=== PATIENT | female | born 1945 | race Caucasian/White ===

== ENCOUNTER → 2016-12-30 | Outpatient (CLI) | payer OTHER | LOC: BMCIMAGING 15:25 | PROVIDERS: ATTEND Internal Medicine | DX: R05 Cough (principal); D86.0 Sarcoidosis of lung ==

== ENCOUNTER 2017-02-20 14:56 | Observation (INO) | payer OTHER ==
--- NOTE | 2017-02-20 15:10 | EDPHY ---
H & P Stated Complaint: heart palp Time Seen by Provider: 02/20/17 15:09 - Personal History Current Tetanus/Diphtheria Vaccine: Unsure Current Tetanus Diphtheria and Acellular Pertussis (TDAP): Unsure - Medical/Surgical History Hx Asthma: No Hx Chronic Respiratory Disease: No Hx Diabetes: No Hx Cardiac Disease: No Hx Renal Disease: No Hx Cirrhosis: No Hx Alcoholism: No Hx HIV/AIDS: No Hx Splenectomy or Spleen Trauma: No Other PMH: HYPOTHYROID,SJOGRENS SYNDROM, SCARCOIDOISIS,KNEE REPAIR, PELVIC FLOOR REPAIR,TONSILECTOMY - Social History Smoking Status: Never smoked Constitutional: Initial Vital Signs Temperature (C) 36.6 C 02/20/17 14:58 Heart Rate 120 H 02/20/17 14:58 Respiratory Rate 16 02/20/17 14:58 Blood Pressure 134/99 H 02/20/17 14:58 O2 Sat (%) 96 02/20/17 14:58 O2 Delivery Mode Room Air Allergies/Adverse Reactions: quinine [Quinine] Allergy (Intermediate, Verified 05/28/16 15:20) LIVER PROBLEMS celecoxib [From Celebrex] Allergy (Mild, Verified 05/28/16 15:20) Hives NSAIDS (Non-Steroidal Anti-Inflamma Allergy (Verified 05/28/16 15:20) Home Medications: Medication Instructions Recorded NAPROXEN 10/16/10 Cytomel 05/28/16 Metformin HCl 05/28/16 Prednisone 05/28/16 Synthroid 05/28/16 Medical Decision Making - Diagnostics Imaging Results: Imaging Impressions Chest X-Ray 02/20/17 15:18 Impression: Possible new interstitial lung disease, potentially related to the patient's sarcoid/Sjogren's disease. Imaging: I viewed and interpreted images myself ED Course/Re-evaluation: CHIEF COMPLAINT: Heart palpitations HISTORY OF PRESENT ILLNESS: The patient is a 71 y/o female arriving with her complaining of rapid heart rate and palpitations onset this morning. She has a history of Sarcoidosis and Sjogren's syndrome for which she has been on chronic low-dose prednisone. She recently decreased her prednisone dosing from 5mg every 3 days to nothing in preparation for a cortisol stimulation test. She thinks this change triggered her palpitations. She has one prior episode of similar symptoms in 2002 they believed was related to hyperthyroidism related to taking too much medication. Since that episode she occasionally notices some skipped beats, but states all subsequent EKGs have been normal. This morning she felt more fatigued than normal with some shortness of breath and her heart rate felt "bumpy." A home BP device showed her HR at 126, so she called her doctor and was advised to come into the ED. She denies associated chest pain, fever, vomiting, or other complaints. Last PO intake was lunch at noon. REVIEW OF SYSTEMS: A 10 point review of systems was performed and is negative with the exception of the elements mentioned in the history of present illness. PHYSICAL EXAM: HR 130, BP, O2 Sat, RR. Temp noted General Appearance: Alert, well hydrated, appropriate, and non-toxic appearing. Head: Atraumatic without scalp tenderness or obvious injury Eyes: Pupils equal, round, reactive to light and accommodation, EOMI, no trauma , no injection. Nose: Atraumatic, no rhinorrhea, clear. Throat: Mucus membranes moist. Neck: Supple, nontender, no lymphadenopathy. Respiratory: No retractions, no distress, no wheezes, and no accessory muscle use. Lungs are clear to auscultation bilaterally. Cardiovascular: Tachycardic, irregularly irregular, no murmurs, rubs, or gallops. Good capillary refill all extremities. Gastrointestinal: Abdomen is soft, nontender, non-distended, no masses, no rebound, no guarding, no peritoneal signs. Musculoskeletal: Normal active ROM of all extremities, atraumatic. Neurological: Alert, appropriate, and interactive. Nonfocal neuro exam. Skin: No rashes, good turgor, no nodules on palpation. Past medical history: one episode atrial fibrillation 2002, sarcoidosis, Sjogren 's syndrome, hypothyroidism. Past surgical history: knee surgery Family history: noncontributory Social history: at bedside. Bacteriologist Food: Dr. Tavarez. PCP: Dr. Bermudez. Prior medical records reviewed including ED visit 06/13/16 for right knee swelling. DIAGNOSTICS/PROCEDURES/CRITICAL CARE TIME: The 12 lead EKG was interpreted by myself. Rapid atrial fibrillation with ventricular rate around 130. See hard copy and/or "tracemaster" electronic copy for interpretation. DIFFERENTIAL DIAGNOSIS: The differential diagnosis for the patient's narrow complex tachycardia included but was not limited to various causes of sinus tachycardia such as dehydration and medicines, SVT, atrial flutter, atrial fibrillation, pulmonary causes. MEDICAL DECISION MAKING: This is a 71 y/o female with a history of Sjogren's and sarcoidosis presenting with a few-hour history of rapid atrial fibrillation. She is on day 4 of a low prednisone taper and this morning noticed palpitations, fatigue, and dyspnea. On exam, she has a rapid irregularly irregular heart rate. Her EKG shows rapid atrial fibrillation. Her exam is otherwise unremarkable. Plan for IV, labs including TSH, chest x-ray, IV fluids, and 10mg IV Diltazem to be followed by Diltazem drip. TSH, troponin, and other lab work unremarkable. Paged Dr. Cramer to determine if he agrees with cardioversion here. She is within the window of onset to minimize risk of blood clot with this procedure. 1651: Consulted with Dr. Cramer, line servicer. He agrees with my plan, but also recommends starting patient on anticoagulants for at least 1 month course. Reassessed patient and discussed work up and recommendation for cardioversion. We discussed risks and benefits. Her HR is currently around 115. She has requested to wait and see if she converts without electrical cardioversion. Plan for admission. 15mg PO Xarelto administered. 1722: Spoke with hospitalist service. Dr. Atkinson accepts admission. 1742: Updated Dr. Cramer. He will follow patient during admission. - Data Points Laboratory Results: Laboratory Results 02/20/17 15:10 02/20/17 15:10 02/20/17 02/20/17 15:10 15:10 WBC 6.85 10^3/uL 10^3/uL (3.80-9.50) RBC 5.39 10^6/uL H 10^6/uL (4.18-5.33) Hgb 16.2 g/dL g/dL (12.6-16.3) Hct 48.0 % H % (38.0-47.0) MCV 89.1 fL fL (81.5-99.8) MCH 30.1 pg pg (27.9-34.1) MCHC 33.8 g/dL g/dL (32.4-36.7) RDW 14.1 % % (11.5-15.2) Plt Count 263 10^3/uL 10^3/uL (150-400) MPV 10.2 fL fL (8.7-11.7) Neut % (Auto) 57.7 % % (39.3-74.2) Lymph % (Auto) 28.9 % % (15.0-45.0) [place] % (Auto) 8.8 % % (4.5-13.0) Eos % (Auto) 3.6 % % (0.6-7.6) Baso % (Auto) 0.7 % % (0.3-1.7) Nucleat RBC Rel Count 0.0 % % (0.0-0.2) Absolute Neuts (auto) 3.95 10^3/uL 10^3/uL (1.70-6.50) Absolute Lymphs (auto) 1.98 10^3/uL 10^3/uL (1.00-3.00) Absolute Monos (auto) 0.60 10^3/uL 10^3/uL (0.30-0.80) Absolute Eos (auto) 0.25 10^3/uL 10^3/uL (0.03-0.40) Absolute Basos (auto) 0.05 10^3/uL 10^3/uL (0.02-0.10) Absolute Nucleated RBC 0.00 10^3/uL 10^3/uL (0-0.01) Immature Gran % 0.3 % % (0.0-1.1) Immature Gran # 0.02 10^3/uL 10^3/uL (0.00-0.10) Sodium 138 mEq/L mEq/L (134-144) Potassium 3.9 mEq/L mEq/L (3.5-5.2) Chloride 105 mEq/L mEq/L (97-110) Carbon Dioxide 25 mEq/l mEq/l (22-31) Anion Gap 8 mEq/L mEq/L (8-16) BUN 18 mg/dL mg/dL (7-23) Creatinine 0.7 mg/dL mg/dL (0.6-1.0) Estimated GFR > 60 Glucose 108 mg/dL H mg/dL (70-100) Calcium 10.2 mg/dL mg/dL (8.5-10.4) Magnesium 1.8 mg/dL mg/dL (1.6-2.3) Troponin I < 0.012 ng/mL ng/mL (0-0.034) NT-Pro-B Natriuret Pep 75 pg/mL pg/mL (0-125) TSH 0.805 uIU/mL uIU/mL (0.465-4.680) Medications Given: Discontinued Medications Diltiazem HCl (Cardizem 25 Mg/5 Ml Vial) 10 mg IVP EDNOW ONE Stop: 02/20/17 15:35 Last Admin: 02/20/17 15:49 Dose: 10 mg Sodium Chloride (Ns) 1,000 mls @ 0 mls/hr IV ONCE ONE PRN Reason: Wide Open Stop: 02/20/17 15:16 Last Admin: 02/20/17 15:15 Dose: 1,000 mls Diltiazem HCl 125 mg/ Dextrose 150 mls @ 0 mls/hr IV EDNOW ONE; Titrate PRN Reason: Protocol Stop: 02/20/17 15:36 Last Admin: 02/20/17 16:04 Dose: 150 mls Departure - Departure Disposition: [facility] Inpatient Acute Clinical Impression: Atrial fibrillation Qualifiers: Atrial fibrillation type: paroxysmal Qualified Code(s): I48.0 - Paroxysmal atrial fibrillation Condition: Fair Report Scribed for: Hoemro Nunez Report Scribed by: Laya Mendoza Date of Report: 02/20/17 Time of Report: 15:33
[2017-02-20] MEDS ORDERED: NS 1,000 ML IV ONE (15:15)
--- NOTE | 2017-02-20 15:16 | CPEKG ---
Heart Rate: 131 RR Interval: 458 QRSD Interval: 88 QT Interval: 312 QTC Interval: 461 QRS [place]: -2 T Wave [place]: 44 EKG Severity - ABNORMAL ECG - EKG Impression: ATRIAL FIBRILLATION EKG Impression: BORDERLINE ST DEPRESSION, LATERAL LEADS Electronically Signed By: Homero Nunez 20-Feb-2017 18:46:49
[2017-02-20 15:25] LABS: % IMMATURE GRANULYOCYTES 0.3 % (0.0-1.1); ABSOLUTE IMMATURE GRANULOCYTES 0.02 10^3/uL (0.00-0.10); ADD DIFF? NO; ADD MORPH? NO; ADD SCAN? NO; ATYPICAL LYMPHOCYTE FLAG 0 (0-99); FRAGMENT RBC FLAG 0 (0-99); HEMOGLOBIN 16.2 g/dL (12.6-16.3); LEFT SHIFT FLG 0 (0-99); LIPEMIA HEMOLYSIS FLAG 90 (0-99); MEAN CELL HEMOGLOBIN 30.1 pg (27.9-34.1); MEAN CELL HEMOGLOBIN CONCENTR. 33.8 g/dL (32.4-36.7); MEAN CELL VOLUME 89.1 fL (81.5-99.8); MEAN PLATELET VOLUME 10.2 fL (8.7-11.7); PLATELET CLUMPS FLAG 10 (0-99); PLATELET COUNT 263 10^3/uL (150-400); RED BLOOD CELL COUNT 5.39 10^6/uL (4.18-5.33); RED CELL DISTRIBUTION WIDTH 14.1 % (11.5-15.2)
[2017-02-20] MEDS ORDERED: DILTIAZEM 25 MG/5 ML VIAL IVP ONE (15:34)
[2017-02-20] MEDS ORDERED: DILTIAZEM 125 MG in D5W 125 ML IV ONE (15:35)
[2017-02-20 15:41] LABS: ANION GAP 8 mEq/L (8-16); CALCIUM 10.2 mg/dL (8.5-10.4); CARBON DIOXIDE 25 mEq/l (22-31); CHLORIDE 105 mEq/L (97-110); CREATININE 0.7 mg/dL (0.6-1.0); GLOMERULAR FILTRATION RATE > 60; GLUCOSE 108 mg/dL (70-100); MAGNESIUM 1.8 mg/dL (1.6-2.3); POTASSIUM 3.9 mEq/L (3.5-5.2); SODIUM 138 mEq/L (134-144)
[2017-02-20 15:53] LABS: TROPONIN I < 0.012 ng/mL (0-0.034)
[2017-02-20] MEDS ORDERED: RIVAROXABAN 15 MG TAB PO ONE (17:27)
[2017-02-20] MEDS ORDERED: ACETAMINOPHEN 325 MG TAB PO PRN (18:52)
[2017-02-20] MEDS ORDERED: ONDANSETRON DISINTEGRATING 4 MG TAB PO PRN (18:52)
[2017-02-20] MEDS ORDERED: ONDANSETRON 4 MG/2 ML VIAL IVP PRN (18:52)
--- NOTE | 2017-02-20 18:59 | PDGENHP ---
History and Physical - Chief Complaint palpitations - History of Present Illness 71 yo female with distant h/o A fib thought related to hyperthyroidism presents to ED with heart palpitations. Onset was early this afternoon. She denies CP, but feels some SOB with activity. She has a h/o Sjogren's syndrome and was recently treated with a Prednisone taper. No headaches, vision changes or focal weakness. No abdominal pain, N/V/D or changes in her bowel or bladder habits. She drinks 1-2 glasses of wine occasionally. No significant caffeine intake. Her mom had a h/o A fib and of a stroke after heart valve surgery. She is found to be in rapid A fib in the ED, was started on a Diltiazem drip, and is admitted for further management. History Information - Allergies/Home Medication List Allergies/Adverse Reactions: quinine [Quinine] Allergy (Intermediate, Verified 05/28/16 15:20) LIVER PROBLEMS celecoxib [From Celebrex] Allergy (Mild, Verified 05/28/16 15:20) Hives Home Medications: Albuterol [Proventil Inhaler HFA (*)] 2 puffs IH Q4 PRN 02/20/17 [Last Taken Unknown] Ergocalciferol [Vitamin D2 (*)] 50,000 unit PO Q30D 02/20/17 [Last Taken ] Fluticasone Nasal [Flonase Nasal [place] (RX)] 1 sprays NASAL DAILY PRN 02/20/17 [ Last Taken Unknown] Levothyroxine [Synthroid 88 mcg (*)] 88 mcg PO DAILY 02/20/17 [Last Taken ] Liothyronine Sodium [Cytomel 5 mcg (*)] 2.5 mcg PO HS 02/20/17 [Last Taken 02/19] Liothyronine Sodium [Cytomel 5 mcg (*)] 5 mcg PO DAILY 02/20/17 [Last Taken 12/03] Multivitamins [Multivitamin (*)] 1 each PO DAILY 02/20/17 [Last Taken 02/20/17] Naproxen 375 mg PO DAILY 02/20/17 [Last Taken 02/20/17] Naproxen Sodium [Aleve 220 MG (*)] 220 mg PO DAILY@1800 PRN 02/20/17 [Last Taken Unknown] Ranitidine HCl 75 mg PO DAILY PRN 02/20/17 [Last Taken Unknown] Thiamine HCl 300 mg PO TID 02/20/17 [Last Taken 02/20/17] metFORMIN HCL [Metformin HCl] 500 mg PO DAILY@1800 02/20/17 [Last Taken 02/19/17 ] predniSONE [Prednisone] 5 mg PO .Q3DAYS 02/20/17 [Last Taken 02/16/17] I have personally reviewed and updated: family history, medical history, social history, surgical history - Past Medical History Additional medical history: Hyperthyroidism. Sjogren's syndrome. Sarcoidosis - Surgical History Additional surgical history: Knee repair. Pelvic floor repair. Tonsillectomy - Family History Positive for: stroke Additional family history: Mom had A fib, valve disease, of stroke - Social History Smoking Status: Never smoked Alcohol Use: Rarely Drug Use: None Additional social history: Lives independently with , who is present at bedside Review of Systems ROS: 10pt was reviewed & negative except for what was stated in HPI & below Physical Exam Temp Pulse Resp BP Pulse Ox 36.5 C 86 14 145/94 H 92 02/20/17 18:14 02/20/17 18:14 02/20/17 18:14 02/20/17 18:14 02/20/17 18:14 Constitutional: no apparent distress Eyes: PERRL Ears, Nose, Mouth, Throat: moist mucous membranes Cardiovascular: no murmur, rub, or gallop, irregularly irregular Respiratory: no respiratory distress, clear to auscultation Gastrointestinal: normoactive bowel sounds, soft, non-tender abdomen Skin: warm Musculoskeletal: full muscle strength Neurologic: AAOx3 Psychiatric: interacting appropriately Lab Data & Imaging Review 02/20/17 15:10 02/20/17 15:10 WBC 6.85 10^3/uL (3.80-9.50) 02/20/17 15:10 RBC 5.39 10^6/uL (4.18-5.33) H 02/20/17 15:10 Hgb 16.2 g/dL (12.6-16.3) 02/20/17 15:10 Hct 48.0 % (38.0-47.0) H 02/20/17 15:10 MCV 89.1 fL (81.5-99.8) 02/20/17 15:10 MCH 30.1 pg (27.9-34.1) 02/20/17 15:10 MCHC 33.8 g/dL (32.4-36.7) 02/20/17 15:10 RDW 14.1 % (11.5-15.2) 02/20/17 15:10 Plt Count 263 10^3/uL (150-400) 02/20/17 15:10 MPV 10.2 fL (8.7-11.7) 02/20/17 15:10 Neut % (Auto) 57.7 % (39.3-74.2) 02/20/17 15:10 Lymph % (Auto) 28.9 % (15.0-45.0) 02/20/17 15:10 [place] % (Auto) 8.8 % (4.5-13.0) 02/20/17 15:10 Eos % (Auto) 3.6 % (0.6-7.6) 02/20/17 15:10 Baso % (Auto) 0.7 % (0.3-1.7) 02/20/17 15:10 Nucleat RBC Rel Count 0.0 % (0.0-0.2) 02/20/17 15:10 Absolute Neuts (auto) 3.95 10^3/uL (1.70-6.50) 02/20/17 15:10 Absolute Lymphs (auto) 1.98 10^3/uL (1.00-3.00) 02/20/17 15:10 Absolute Monos (auto) 0.60 10^3/uL (0.30-0.80) 02/20/17 15:10 Absolute Eos (auto) 0.25 10^3/uL (0.03-0.40) 02/20/17 15:10 Absolute Basos (auto) 0.05 10^3/uL (0.02-0.10) 02/20/17 15:10 Absolute Nucleated RBC 0.00 10^3/uL (0-0.01) 02/20/17 15:10 Immature Gran % 0.3 % (0.0-1.1) 02/20/17 15:10 Immature Gran # 0.02 10^3/uL (0.00-0.10) 02/20/17 15:10 Sodium 138 mEq/L (134-144) 02/20/17 15:10 Potassium 3.9 mEq/L (3.5-5.2) 02/20/17 15:10 Chloride 105 mEq/L (97-110) 02/20/17 15:10 Carbon Dioxide 25 mEq/l (22-31) 02/20/17 15:10 Anion Gap 8 mEq/L (8-16) 02/20/17 15:10 BUN 18 mg/dL (7-23) 02/20/17 15:10 Creatinine 0.7 mg/dL (0.6-1.0) 02/20/17 15:10 Estimated GFR > 60 02/20/17 15:10 Glucose 108 mg/dL (70-100) H 02/20/17 15:10 Calcium 10.2 mg/dL (8.5-10.4) 02/20/17 15:10 Magnesium 1.8 mg/dL (1.6-2.3) 02/20/17 15:10 Troponin I < 0.012 ng/mL (0-0.034) 02/20/17 15:10 NT-Pro-B Natriuret Pep 75 pg/mL (0-125) 02/20/17 15:10 TSH 0.805 uIU/mL (0.465-4.680) 02/20/17 15:10 Visualized and Interpreted Chest x-ray results: Yes Chest X-Ray results: no infiltrate, normal heart size, other (new interstitial lung disease) Visualized and Interpreted EKG results: Yes EKG Interpretation: Positive for: other (A fib with RVR, minimal ST depression, likely rate related) Assessment & Plan Assessment: Atrial fibrillation with RVR - Rate better controlled on Dilt drip. TSH is normal. Chads-vasc 2. -will give oral dilt for rate control and titrate off drip as able -discussed anticoagulation, pt agreeable, started on Xarelto, holding nsaids -check echo -cycle troponin -cardiology, Dr. Cramer, to consult in am for possible BLACK/CV if doesn't convert overnight -NPO after midnight Sjogren's disorder - on low dose prednisone q3d, holding for now Sarcoidosis - echo as above, hopefully this isn't affecting her heart as a provoking source of A fib Interstitial lung disease - seen on CXR, may be new onset. ?could this be causing heart strain -outpt pulm consult Hypothyroidism - on levothyroxine and liothyronine -check TSH -holding above meds until sure she is not iatrogenically hyperthyroid as source of A fib Full code DVT PPLX - Xarelto Dispo - obs
[2017-02-20] MEDS ORDERED: FLUTICASONE NASAL 120 SPRAYS/16 GM MDI EACHNARE PRN (19:08)
[2017-02-20] MEDS ORDERED: ALBUTEROL 60 PUFFS/8 GM MDI IH PRN (19:08)
[2017-02-20] MEDS ORDERED: FAMOTIDINE 20 MG TAB PO PRN (21:00)
[2017-02-20] MEDS: DILTIAZEM 30 MG TAB PO SCH (23:02)
[2017-02-20] MEDS: THIAMINE HCL 100 MG TAB PO SCH (23:02)
[2017-02-21 04:06] LABS: INR 1.78 (0.83-1.16); PROTIME(PATIENT) 20.8 SEC (12.0-15.0)
[2017-02-21] MEDS: DILTIAZEM 30 MG TAB PO SCH ×2 (05:29→11:49)
[2017-02-21] MEDS: THIAMINE HCL 100 MG TAB PO SCH (11:16)
[2017-02-21 11:27] VITALS: RESP 18
[2017-02-21 11:28] VITALS: BP 113/60; PULSE 78; TEMP 97.4; O2SAT 93
--- NOTE | 2017-02-21 12:15 | GCON ---
[f rep st] CONSULTATION CARDIOLOGY CONSULTATION DATE OF CONSULTATION: 02/21/2017 PRIMARY REPORTS ANALYSIS MANAGER: Jose Elias Tavarez MD. PRIMARY REGULATOR PIN INSERTER: Jayne Escalera MD REASON FOR CONSULTATION: We were asked by Dr. Kumar to evaluate the patient for atrial fibrillation. HISTORY OF PRESENT ILLNESS: The patient is a 71-year-old female with a past medical history significant for pulmonary sarcoidosis, Sjogren syndrome, hypothyroidism, prediabetes, who presents after noting rapid heart rate. She reports she was up and preparing lunch, and also had carried a few boxes, when she started to note a rapid heart rate. There was no associated chest pain or dyspnea. She called her gps navigation installer who recommended that she come to the ED for further evaluation, at which time she was found to be in atrial fibrillation with RVR in the 130s. She was admitted and started on diltiazem drip. She spontaneously this morning at around six AM. She reports she feels back to her usual state of health. With the atrial fibrillation, she did note feeling an elevated heart rate. She denies any chest pain or presyncope or syncope. In general, she has been more dyspneic with activity over the past couple of years. She has been evaluated by both her turf manager and Cardiology and is it was felt that her dyspnea exceeds her pulmonary sarcoidosis. She was advised on exercise for treatment of this. She denies any excessive alcohol intake. She reports 1 previous episode of AFib in 2002 for which she was admitted and had spontaneous conversion overnight. She has been working with her turf manager for her Sjogren's. She was put on prednisone, which she has been dosing herself every 3rd day. Since last week, approximately mid week, she took her last dose in an attempt to try to decrease her dosing. Additionally, she wants to undergo a cosyntropin stim test to evaluate for adrenal insufficiency and therefore has been trying to get off the prednisone. She reports diffuse muscle aches and weakness as her main symptoms of Sjogren' s. She has been using naproxen fairly regularly for this. PAST MEDICAL HISTORY: 1. Pulmonary sarcoidosis. 2. Sjogren syndrome. 3. Hypothyroidism. PAST SURGICAL HISTORY: Knee repair, pelvic floor repair, and tonsillectomy. FAMILY HISTORY: Positive for stroke. Mother had atrial fibrillation. SOCIAL HISTORY: Patient is and her is present at bedside. She denies any significant alcohol use. She is a never smoker. REVIEW OF SYSTEMS: As per HPI. A complete 10-point review of systems was obtained and was negative, except for what is dictated. PHYSICAL EXAM: VITAL SIGNS: Blood pressure of 96/60, heart rate 79, respirations 12, O2 saturation 96% on 2 L/min, on room air she is 92%, temperature of 98 degrees Fahrenheit. GENERAL: She is a very pleasant female in no apparent distress. HEENT: Normocephalic, atraumatic. EYES: [place] without scleral icterus. HEART: Regular rate and rhythm with no rubs, gallops , or murmurs auscultated. LUNGS: Clear to auscultation bilaterally. SKIN: Warm and dry. NEURO: No focal deficits detected LABORATORY DATA: CBC with WBC 6.85, hemoglobin 16.2, hematocrit 48, platelet count of 263. BMP with sodium 138, potassium 3.9, chloride 105, CO2 25, BUN 18 , creatinine 0.7, glucose 108. Troponin less than 0.012 x2. TSH of 0.8. A 12-lead ECG personally interpreted demonstrates atrial fibrillation. Telemetry personally reviewed shows AFib and then spontaneous conversion. IMPRESSION AND PLAN: The patient is a 71-year-old female admitted for atrial fibrillation. 1. Paroxysmal atrial fibrillation. She has had spontaneous conversion. We reviewed options of further management. Her CHADS-VASc score is 2, and possibly 3 for prediabetes. She is agreeable to start Eliquis. Risk, benefits and alternatives reviewed with her. We discussed outpatient monitoring and further testing. She does have an appointment with Dr. Tavarez coming up later in the month. She was noted to have some overnight hypoxia. We will screen for hypoxia with a nocturnal pulse ox prior to her appointment with Dr. Tavarez. I asked whether Dr. Tavarez will want to have a heart monitor placed prior to her appointment. 2. Sarcoidosis and Sjogren's. Follow up with outpatient providers for this. 3. Hypothyroidism. She appears euthyroid at this point. /[id number]/MODL MTDD
--- NOTE | 2017-02-21 13:00 | GDS ---
[f rep st] DISCHARGE SUMMARY CHIEF COMPLAINT: Palpitations. DISCHARGE DIAGNOSES: 1. Atrial fibrillation, recurrent. 2. Sarcoidosis of the lungs. 3. Prediabetes. 4. Sjogren syndrome. 5. Hypothyroidism. CONSULTATIVE SERVICES: Cardiology. PROCEDURES ON THIS PATIENT: Transthoracic echocardiogram. Preliminary read is normal. HISTORY OF PRESENT ILLNESS: A 71-year-old female with a history of distant atrial fibrillation, tho ught secondary to supratherapeutic treatment with Synthroid, who presented with complaints of palpit ations the day of presentation. The patient has a history of Sjogren's and sarcoidosis, as well as hypothyroidism, who presented with complaints of palpitations. For details of patient's initial pre sentation, please see the History and Physical dated 02/20/2017. HOSPITAL COURSE BY ISSUE: 1. Atrial fibrillation. Patient presented in RVR, was placed on a diltiazem drip and converted to sinus rhythm overnight. CHADSVASC scoring, performed by admitting physician, qualified the patient for anticoagulation, and she is being initiated on Eliquis at disposition, and has been instructed t o follow with the nuclear supervising operator in the next 2 weeks' time. The patient will not be sent on rate cont rol medications, as her heart rate is in the 60s at the time of disposition. 2. Sjogren disorder. Patient just weaned from steroids. 3. Sarcoidosis of the lung. The patient is currently asymptomatic. 4. Hypothyroidism. Patient is continued now on levothyroxine. MEDICATIONS AT THE TIME OF DISPOSITION: Please reference med rec printed on 02/21/2017. FOLLOWUP APPOINTMENTS FOR THIS PATIENT: With Cardiology in the next 1-2 weeks. PENDING STUDIES AT THE TIME OF DICTATION: None. TIME SPENT: I spent greater than 30 minutes in the planning and coordination of this discharge. /[id number]/MODL
[2017-02-21] MEDS ORDERED: RIVAROXABAN 20 MG TAB PO SCH (18:00)
--- NOTE | 2017-02-22 14:24 | ECHO ---
[id number] + + [address] : : [place] [address] : : [phone] + + Adult Echocardiographic Report + ---+ :Name: IMER THURSTON SStudy Date: 02/21/2017 08:06 AM : : Hospital Admission Number: [id number] : :: 1945 Gender: Female Height: 66 in : :Age: 71 yrs Race: WH Weight: 182 l b : :Reason For Study: Atrial Fibrillation : : BSA: 1.9 mete rs2: + ---+ MMode/2D Measurements \T\ Calculations IVSd: 0.77 cm LVIDd: 4.6 cm FS: 33.3 % Ao root diam: LVPWd: 0.84 cm LVIDs: 3.0 cm EDV(Teich): 3.4 cm 95.1 ml LA dimension: ESV(Teich): 3.4 cm 36.0 ml EF(Teich): 62.1 % LVLd ap4: 8.1 cm SV(MOD-sp4): EDV(MOD-sp4): 59.0 ml 84.0 ml LVLs ap4: 6.4 cm ESV(MOD-sp4): 25.0 ml EF(MOD-sp4): 70.2 % Normal Measurement Values: + + :LVIDd (3.5-5.7cm) IVSd (0.6-1.1cm) LVPWd (0.6-1.1cm) Aortic Root (2.0-3.7cm)Left Atrium (1.5-4.0cm): :LV Vol(d) (76-115ml) LV Vol(s) (29-48ml) Ejec Fraction (50-65%)PV Quinn (0.6- 1.2m/s) TV Quinn (0.4-1.0m/s) : :MV E Quinn (0.8-1.0m/s)MV A Quinn (0.3-1.0m/s)LVOT Quinn (0.7-1.2m/s) Asc Ao Quinn ( 0.9-1.8m/s) : + + Doppler Measurements \T\ Calculations MV E max quinn: 75.0 cm/sec Ao mean P.0 mmHg LV V1 mean P.00 mmHg MV A max quinn: 39.5 cm/sec Ao V2 mean: 83.6 cm/sec LV V1 mean: 46.2 cm/sec MV E/A: 1.9 Ao V2 VTI: 25.0 cm LV V1 VTI: 14.1 cm Left Ventricle The left ventricle is normal in size and function. There is normal left ventricular wall thickness. Left ventricular systolic function is normal. The left ventricular ejection fraction is calculated at 62.1 %. There is Doppler evidence for diastolic dysfunction. No regional wall motion abnormalities noted. Right Ventricle The right ventricle is normal in size and function. Atria The left atrial size is normal. Right atrial size is normal. Mitral Valve The mitral valve is normal in structure and function. There is trace mitral regurgitation. Tricuspid Valve Normal tricuspid valve. There is trace tricuspid regurgitation. Aortic Valve The aortic valve is trileaflet. The aortic valve opens well. There is no aortic stenosis. Trace aortic regurgitation. Pulmonic Valve The pulmonic valve is not well visualized. There is no pulmonic valvular regurgitation. Great Vessels The aortic root is normal size. Pericardium/Pleural There is no pericardial effusion. Conclusion A complete two-dimensional transthoracic echocardiogram was performed (2D, M-mode, Doppler and color flow Doppler). (1) Left ventricular systolic ejection fraction was normal (60-65%) - normal wall motion (2) No left ventricular hypertrophy (3) Diastolic dysfunction was present (4) Normal right ventricular size and function (5) Normal atrial dimensions (6) Trace mitral regurgitation (7) Trileaflet aortic valve without sclerosis. Physiologic insufficiency noted (8) Physiologic tricuspid regurgitation (9) Poor visualization of the pulmonic valve (10) No comparison echocardiograms Final Reading Physician: Anai Whitaker signed on 02/22/2017 02:23 PM Ordering Physician: Milady Atkinson Performed By: Kim Gama RDCS
== END 2017-02-21 12:30 | disposition home or self-care (01) ==
LOC: F2W 18:10
PROVIDERS: ADMIT Hospitalist; ATTEND Hospitalist
DX: I48.0 Paroxysmal atrial fibrillation (principal); E03.9 Hypothyroidism, unspecified; M35.00 Sjogren syndrome, unspecified; D86.9 Sarcoidosis, unspecified; J84.9 Interstitial pulmonary disease, unspecified; R73.03 Prediabetes; Z79.52 Long term (current) use of systemic steroids
CPT/HCPCS: 71020; 93005; 93306; G0378; 96374

== ENCOUNTER → 2017-03-02 | Outpatient (CLI) | payer OTHER | LOC: BHFA 13:30 | PROVIDERS: ATTEND Internal Medicine Cardiovascular Disease | DX: I48.91 Unspecified atrial fibrillation (principal); D86.0 Sarcoidosis of lung ==

== ENCOUNTER → 2017-03-08 | Outpatient (CLI) | payer OTHER | LOC: BMCIMAGING 15:17 | PROVIDERS: ATTEND Internal Medicine Rheumatology | DX: M25.551 Pain in right hip (principal) ==

== ENCOUNTER → 2017-03-16 | Outpatient (CLI) | payer OTHER | LOC: FIMAGING 11:01 | PROVIDERS: ATTEND Internal Medicine Endocrinology, Diabetes & Metabolism | DX: Z13.820 Encounter for screening for osteoporosis (principal) ==

== ENCOUNTER 2017-04-11 10:01 | Observation (INO) | payer OTHER ==
--- NOTE | 2017-04-11 10:17 | CPEKG ---
Heart Rate: 59 RR Interval: 1017 P-R Interval: 148 QRSD Interval: 90 QT Interval: 424 QTC Interval: 420 P [place]: 13 QRS [place]: 0 T Wave [place]: 33 EKG Severity - NORMAL ECG - EKG Impression: SINUS RHYTHM Electronically Signed By: Eulalia Tripp 11-Apr-2017 15:32:11
--- NOTE | 2017-04-11 10:47 | EDPHY ---
H & P Stated Complaint: heart skipping beats;sent by [facility] for EKG - Personal History Current Tetanus Diphtheria and Acellular Pertussis (TDAP): Yes - Medical/Surgical History Hx Asthma: No Hx Chronic Respiratory Disease: No Hx Diabetes: No Hx Cardiac Disease: Yes Hx Renal Disease: No Hx Cirrhosis: No Hx Alcoholism: No Hx HIV/AIDS: No Hx Splenectomy or Spleen Trauma: No Other PMH: HYPOTHYROID,SJOGRENS SYNDROM, SCARCOIDOISIS,KNEE REPAIR, PELVIC FLOOR REPAIR,TONSILECTOMY, hx sleep apnea, lymphadema right leg, afib - Social History Smoking Status: Never smoked Time Seen by Provider: 04/11/17 10:24 HPI/ROS: CHIEF COMPLAINT: "I just feel weird" HISTORY OF PRESENT ILLNESS: 71-year-old female history of atrial fibrillation, history of hospitalization for same in February 2017 started on Eliquis. She woke this morning stating that she "fell weird and not feeling right". She contacted the nurse for Dr. Fortino Tavarez her rack pusher who recommend she go to [facility]. She went to [facility] and was told that they do not have EKG. Patient went back to [facility] in because of unavailability they could not see her and she therefore came to the ER. Emergency department she denies chest pain but states that she is still "not feeling right". Denies chest pain or dyspnea. Denies headache. Denies syncope or near syncope. REVIEW OF SYSTEMS: A ten point review of systems was performed and is negative with the exception of the items mentioned in the HPI PAST MEDICAL & SURGICAL HISTORY: No pertinent medical or surgical history SOCIAL HISTORY: FAMILY HISTORY: No pertinent family history PHYSICAL EXAM (Prior to examination, patient consented to physical exam, hands were washed and my usual and customary physical exam procedures followed) 1) GENERAL: Well-developed, well-nourished, alert and oriented. Appears to be in no acute distress. 2) HEAD: Normocephalic, atraumatic 3) HEENT: Pupils equal, round, reactive to light bilaterally. Sclera anicteric. 4) NECK: Full range of motion, no bruit. 5) LUNGS: Clear auscultation bilaterally, no wheezes, no rhonchi, no retractions. 6) HEART: Regular rate and rhythm, no murmur, no heave, no gallop. 7) ABDOMEN: No guarding, no rebound, no focal tenderness, negative McBurney's, negative Aranda's, negative Rovsing's, negative peritoneal sign, 8) MUSCULOSKELETAL: Moving all extremities, no focal areas of tenderness, no obvious trauma. No peripheral edema or discoloration. 9) BACK: No CVA tenderness, no midline vertebral tenderness, no fluctuance, no step-off, no obvious trauma, no visual or palpable abnormality. 10) SKIN: No rash, no petechiae. 11) Psychiatric: Patient is oriented X 3, there is no agitation. DIFFERENTIAL DIAGNOSIS: in no particular include but limited to acute myocardial infarction, atrial fibrillation, cardiac arrhythmia, (Mariann Strong Tessie) Constitutional: Initial Vital Signs Temperature (C) 36.4 C 04/11/17 10:05 Heart Rate 64 04/11/17 10:05 Respiratory Rate 18 04/11/17 10:05 Blood Pressure 124/75 H 04/11/17 10:05 O2 Sat (%) 97 04/11/17 10:05 O2 Delivery Mode Room Air Allergies/Adverse Reactions: quinine [Quinine] Allergy (Mild, Verified 04/11/17 10:09) LIVER PROBLEMS Home Medications: Medication Instructions Recorded Ergocalciferol [Vitamin D2 (*)] 50,000 unit PO Q30D 02/20/17 Levothyroxine [Synthroid 88 mcg 88 mcg PO DAILY 02/20/17 (*)] Liothyronine Sodium [Cytomel 5 mcg 2.5 mcg PO HS 02/20/17 (*)] Liothyronine Sodium [Cytomel 5 mcg 5 mcg PO DAILY 02/20/17 (*)] Multivitamins [Multivitamin (*)] 1 each PO DAILY 02/20/17 Apixaban [Eliquis] 5 mg PO BID #60 tab 02/21/17 Herbals/Supplements -Info Only 1 ea PO DAILY 04/11/17 celeCOXIB [Celebrex (*)] 200 mg PO DAILY PRN 04/11/17 metFORMIN HCL [Metformin HCl ER] 500 mg PO DAILY18 04/11/17 Medical Decision Making - Diagnostics EKG Interpretation: Twelve lead EKG interpreted by emergency department physician. (Eulalia Tripp) ED Course/Re-evaluation: 10:46 a.m.: Reviewed patient's old medical records discussed case with Dr. Tripp in the emergency department. Will obtain further diagnostic studies and plan likely admission for cardiac rule out 11:28 a.m.: Phone consultation with hospitalist Jaqueline, admit to Dr. Doherty ( Mariann Strong) This patient was primarily evaluated and managed by the physician assistant professor of history. The evaluation was reviewed with me during the patient's ED course. I agree with the plan of care. I am the secondary supervising physician. (Eulalia Tripp) - Data Points Laboratory Results: Laboratory Results 04/11/17 10:21 04/11/17 10:21 Departure - Departure Disposition: [facility] Inpatient Acute Clinical Impression: History of atrial fibrillation Condition: Good
[2017-04-11 10:51] LABS: % IMMATURE GRANULYOCYTES 0.2 % (0.0-1.1); ABSOLUTE IMMATURE GRANULOCYTES 0.01 10^3/uL (0.00-0.10); ADD DIFF? NO; ADD MORPH? NO; ADD SCAN? NO; ATYPICAL LYMPHOCYTE FLAG 0 (0-99); FRAGMENT RBC FLAG 0 (0-99); HEMATOCRIT 44.4 % (38.0-47.0); LEFT SHIFT FLG 10 (0-99); LIPEMIA HEMOLYSIS FLAG 90 (0-99); MEAN CELL HEMOGLOBIN 29.9 pg (27.9-34.1); MEAN CELL HEMOGLOBIN CONCENTR. 33.8 g/dL (32.4-36.7); MEAN CELL VOLUME 88.6 fL (81.5-99.8); MEAN PLATELET VOLUME 9.9 fL (8.7-11.7); PLATELET CLUMPS FLAG 0 (0-99); PLATELET COUNT 235 10^3/uL (150-400); RED BLOOD CELL COUNT 5.01 10^6/uL (4.18-5.33); RED CELL DISTRIBUTION WIDTH 13.5 % (11.5-15.2)
[2017-04-11 11:01] LABS: ANION GAP 10 mEq/L (8-16); CALCIUM 9.5 mg/dL (8.5-10.4); CARBON DIOXIDE 23 mEq/l (22-31); CHLORIDE 108 mEq/L (97-110); CREATININE 0.7 mg/dL (0.6-1.0); GLOMERULAR FILTRATION RATE > 60; GLUCOSE 93 mg/dL (70-100); POTASSIUM 4.5 mEq/L (3.5-5.2); SODIUM 141 mEq/L (134-144)
[2017-04-11 11:02] LABS: INR 1.28 (0.83-1.16)
[2017-04-11 11:03] LABS: APTT 32.6 SEC (23.0-38.0)
[2017-04-11 11:13] LABS: TROPONIN I < 0.012 ng/mL (0-0.034)
[2017-04-11] MEDS ORDERED: ONDANSETRON 4 MG/2 ML VIAL IVP PRN (12:26)
[2017-04-11] MEDS ORDERED: ACETAMINOPHEN 325 MG TAB PO PRN (12:26)
[2017-04-11] MEDS ORDERED: TEMAZEPAM 15 MG CAP PO PRN (12:26)
[2017-04-11] MEDS ORDERED: ONDANSETRON DISINTEGRATING 4 MG TAB PO PRN (12:26)
--- NOTE | 2017-04-11 13:19 | GHP ---
[f rep st] HISTORY AND PHYSICAL DATE OF ADMISSION: 04/11/2017 CHIEF COMPLAINT: Fatigue. HISTORY OF PRESENT ILLNESS: This is a 71-year-old female who was recently admitted for atrial fibri llation, who presents with nonspecific symptoms today. She notes that this morning she felt more ti red than usual. She had a little bit of left-sided throbbing chest pain, which is now resolved. Tyrel holbrook had multiple palpitations. Her functional status has not changed at all. She is mostly limited i n exercise by musculoskeletal complaints. She has had 2 episodes of diarrhea in the last month, tho ugh has recovered well from these and had no other ill-affects. PAST MEDICAL/SURGICAL HISTORY: 1. New diagnosis of atrial fibrillation, converted to normal sinus rhythm on diltiazem drip. 2. History of Sjogren's. 3. History of sarcoidosis. 4. Hypothyroid. MEDICATIONS: Please see medication reconciliation. ALLERGIES: Quinine. FAMILY HISTORY: Mom had AFib and of a stroke. SOCIAL HISTORY: She never smoked. She rarely drinks. REVIEW OF SYSTEMS: A 10-point review of systems is conducted and is negative except per HPI. PHYSICAL EXAM: VITAL SIGNS: Blood pressure 124/75, heart rate 64, respiration rate 18, saturating at 97% on room air, temperature is 36.4. GENERAL: The patient is a pleasant female who is resting comfortably in bed, in no acute distress. HEENT: Shows her to be normocephalic, atraumatic. CARDI OVASCULAR: Regular rate and rhythm. There are no murmurs, rubs, or gallops. PULMONARY: Lungs are clear to auscultation bilaterally. ABDOMEN: Soft, nontender, nondistended. SKIN: Shows no rash. : No Brito. NEUROLOGIC: Shows her to be alert and oriented x3. She is moving all extremities . PSYCHIATRIC: Exam shows normal mood and affect. LABORATORY DATA: CBC is normal. INR is 1.28. Basic metabolic panel is normal. Troponin is negati ve. TSH is 2. DATA: 1. I discussed this with Jonathan Strong. Will admit to the PCU. 2. I personally viewed and interpreted chest x-ray. This shows nothing acute. 3. I personally viewed and interpreted her EKG. This shows sinus rhythm. It is a normal EKG. IMPRESSION AND PLAN: A 71-year-old female, new diagnosis of atrial fibrillation presents with chest pain and other nonspecific symptoms. 1. Chest pain/palpitations/fatigue: EKG is normal. Initial troponin is negative. I think it is r easonable to observe her overnight on telemetry, get an exercise stress test with EKG tomorrow. Thi s has been ordered. If troponins become positive, will re-evaluate this strategy. These symptoms m ay be all unrelated and due to her underlying autoimmune disease in terms of the fatigue. 2. Recent diagnosis of atrial fibrillation: She is in normal sinus now. She is not on a beta-bloc ker due to borderline bradycardia (heart rate around 60). She is anticoagulated with Eliquis. 3. Sjogren syndrome: Currently not getting any treatment. She follows with Dr. Gold. 4. Sarcoid: Has been told this is very early stage. They are currently just monitoring. 5. Hypothyroid: TSH is normal. 6. Code status: She would like to be full code. /[id number]/MODL
[2017-04-11 14:04] LABS: MAGNESIUM 1.8 mg/dL (1.6-2.3)
[2017-04-11] MEDS: APIXABAN 5 MG TAB PO SCH (20:40)
[2017-04-11] MEDS ORDERED: LIOTHYRONINE SODIUM 5 MCG TAB PO SCH (21:00)
[2017-04-12] MEDS ORDERED: LEVOTHYROXINE 88 MCG TAB PO SCH (06:00)
[2017-04-12 07:56] VITALS: RESP 15; TEMP 97.4; O2SAT 91
[2017-04-12] MEDS ORDERED: LIOTHYRONINE SODIUM 5 MCG TAB PO SCH (09:00)
[2017-04-12] MEDS: APIXABAN 5 MG TAB PO SCH (11:33)
[2017-04-12 11:47] VITALS: BP 117/68; PULSE 73
--- NOTE | 2017-04-12 12:18 | GDS ---
[f rep st] DISCHARGE SUMMARY FINAL DIAGNOSES: 1. Fatigue. 2. Palpitations. 3. Recent diagnosis of atrial fibrillation. 4. Premature ventricular contractions, infrequent. 5. Sjogren syndrome. 6. Sarcoid. 7. Hypothyroid. HOSPITAL COURSE: 71-year-old female presented with somewhat nonspecific symptoms of palpitations, f atigue. Given her recent diagnosis of atrial fibrillation, she was monitored overnight on telemetry as well as following her cardiac enzymes. Telemetry showed infrequent PVCs. She had about 7 or 8 overnight. Troponins remained undetectable. She attempted a treadmill stress test. This was nondi agnostic as she went 3 minutes and 13 seconds with significant shortness of breath. She had no ches t pain or ST changes at that point. She feels well, would like to be discharged. We will set her u p with an outpatient nuclear test to be done in a few days. I warned her not to exercise until then . She will have a followup shortly with a comic book artist after that. I think that this is safe and r easonable plan for her. She has been in normal sinus rhythm her entire hospitalization. She remains on apixaban for atrial fibrillation. She is not on a beta khalida given relative bradycardia. /[id number]/MODL
--- NOTE | 2017-04-12 12:48 | CPR ---
[f rep st] NONINVASIVE CARDIAC PROCEDURE REPORT DATE OF PROCEDURE: 04/12/2017 PROCEDURE: Treadmill stress test. REASON FOR TEST: 1. Palpitations. 2. History of atrial fibrillation. FINDINGS: EKG shows sinus rhythm, with a ventricular rate of 74. No arrhythmias noted. Resting bl ood pressure 90/60. Oxygen saturation 92%. STRESS PORTION: She was exercised according to the Yaya protocol for a total of 3 minutes and 13 s econds. She reached a MET level of 4.7 during exercise. She had occasional PVC. There were no oth er rhythm changes or ischemic changes. Peak blood pressure 138/60. Peak heart rate 109. At peak e xercise she was short of breath and felt she needed to stop. RECOVERY: She spontaneously recovered. Resting blood pressure 106/60. Resting heart rate 77. She had occasional PVC. This was a suboptimal treadmill stress test. At this time she currently is st able to return to her room. /[id number]/MODL
== END 2017-04-12 13:18 | disposition home or self-care (01) ==
LOC: F2W 12:45
PROVIDERS: ADMIT Student in an Organized Health Care Education/Training Program; ATTEND Student in an Organized Health Care Education/Training Program
DX: R53.83 Other fatigue (principal); R00.2 Palpitations; R07.89 Other chest pain; I48.91 Unspecified atrial fibrillation; I49.3 Ventricular premature depolarization; M35.00 Sjogren syndrome, unspecified; E03.9 Hypothyroidism, unspecified; D86.9 Sarcoidosis, unspecified; Z82.49 Family history of ischemic heart disease and other diseases of the circulatory system; Z79.01 Long term (current) use of anticoagulants
CPT/HCPCS: 71020; 93005; 93017; G0378

== ENCOUNTER → 2017-04-14 | Outpatient (CLI) | payer OTHER | LOC: BHFA 09:30 | PROVIDERS: ATTEND Internal Medicine Cardiovascular Disease | DX: I48.91 Unspecified atrial fibrillation (principal); R07.9 Chest pain, unspecified | CPT/HCPCS: 78452; 93017; A9500; J2785 ==

== ENCOUNTER → 2017-07-04 | Outpatient (CLI) | payer OTHER | LOC: FIMAGING 15:05 | PROVIDERS: ATTEND Obstetrics & Gynecology | DX: Z12.31 Encounter for screening mammogram for malignant neoplasm of breast (principal) | CPT/HCPCS: G0202 ==

== ENCOUNTER → 2017-12-19 | Outpatient (CLI) | payer OTHER | LOC: BMCIMAGING 14:16 | PROVIDERS: ATTEND Internal Medicine Rheumatology | DX: M15.4 Erosive (osteo)arthritis (principal) ==

== ENCOUNTER → 2018-07-07 | Outpatient (CLI) | payer OTHER | LOC: FIMAGING 15:05 | PROVIDERS: ATTEND Obstetrics & Gynecology | DX: Z12.31 Encounter for screening mammogram for malignant neoplasm of breast (principal) ==

== ENCOUNTER → 2018-11-01 | Outpatient (CLI) | payer OTHER | LOC: FIMAGING 08:51 | PROVIDERS: ATTEND Obstetrics & Gynecology | DX: N64.4 Mastodynia (principal); N63.20 Unspecified lump in the left breast, unspecified quadrant ==

== ENCOUNTER → 2018-12-21 | Outpatient (CLI) | payer OTHER | LOC: BMCIMAGING 12:35 | PROVIDERS: ATTEND Internal Medicine Rheumatology | DX: J40 Bronchitis, not specified as acute or chronic (principal); J18.0 Bronchopneumonia, unspecified organism ==